=== PATIENT | female | born 2000 | race Hispanic/Latino ===

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

== ENCOUNTER 2018-07-31 00:46 | Emergency (ER) | payer SELFPAY ==
[2018-07-31 00:46] VITALS: BMI 44.9
[2018-07-31 00:53] VITALS: TEMP 98.1
--- NOTE | 2018-07-31 01:37 | C.PDOC ---
History Of Present Illness 18 year old female presents to the ER with a complaint of nasal congestion, cough, chills, and subjective fever since yesterday. Patient states she was at work today feeling malaise and lightheaded, reports she had Hx of syncope and seizure in the past with at least two episodes in the past but not on any seizure medications. Denies syncope, LOC, seizure, or actively witnessed seizure. On arrival to ER patient is feeling better with fresh air. Time Seen by Provider: 07/31/18 01:02 Chief Complaint (Nursing): Flu-like Symptoms History Per: Patient History/Exam Limitations: no limitations Onset/Duration Of Symptoms: Days (Yesterday) Current Symptoms Are (Timing): Still Present Sick Contacts (Context): None Associated Symptoms: Fever (Subjective), Chills, Cough, Nasal Congestion, Other (Malaise, Lightheadedness) Recent travel outside of the [place]: No Past Medical History Reviewed: Historical Data, Nursing Documentation, Vital Signs Vital Signs: Last Vital Signs Temp 98.1 F 07/31/18 00:51 Pulse 83 07/31/18 00:51 Resp 14 07/31/18 00:51 BP 130/76 07/31/18 00:51 Pulse Ox 98 07/31/18 00:51 - Medical History PMH: Asthma, Bronchitis, Seizures (January 2016 secondary to dehydration) Surgical History: Appendectomy (@ 3 years old) Family History: States: Unknown Family Hx - Social History Hx Alcohol Use: No Hx Substance Use: No - Immunization History Hx Tetanus Toxoid Vaccination: Yes Hx Influenza Vaccination: No Hx Pneumococcal Vaccination: No Review Of Systems Constitutional: Positive for: Fever (Subjective), Chills, Malaise ENT: Positive for: Nose Congestion Cardiovascular: Positive for: Light Headedness Respiratory: Positive for: Cough Neurological: Negative for: Seizures, Other (LOC, Syncope) Physical Exam - Physical Exam Appears: Non-toxic Skin: Normal Color, Warm, Dry Head: Atraumatic, Normacephalic, No Tenderness (Parasinus) Eye(s): bilateral: Normal Inspection Ear(s): Bilateral: Normal Nose: Discharge (Thick) Oral Mucosa: Moist Throat: Normal, No Erythema, No Exudate Neck: Normal, Supple Chest: Symmetrical, No Tenderness Cardiovascular: Rhythm Regular Respiratory: Normal Breath Sounds, No Rales, No Rhonchi, No Wheezing Neurological/Psych: Oriented x3, Normal Speech ED Course And Treatment O2 Sat by Pulse Oximetry: 98 (Room air) Pulse Ox Interpretation: Normal Progress Note: Patient appears well, conversing at bedside with sibling, vitals are stable, symptoms most likely viral, UCG ordered and found negative. Patient advised fluids, supportive treatment, and follow up with PMD or return if symptoms worsen. Disposition Counseled Patient/Family Regarding: Diagnosis, Need For Followup, Rx Given - Disposition Disposition: HOME/ ROUTINE Disposition Time: :34 Condition: STABLE Additional Instructions: Increase PO fluds Bed rest Take decongestants as directed Keep yourself well hydrated Return to ER if sx worsen Prescriptions: Brompheniramine/Pseudoephed/Dm [Bromfed Dm Cough Syrup] 5 ml PO QID #100 ml Cetirizine HCl [Zyrtec] 10 mg PO DAILY #14 capsule Instructions: Viral Upper Respiratory Infection, Adult (DC) Forms: [email or web address] (Honduran), Work Excuse - Clinical Impression Clinical Impression: Upper respiratory infection, Viral illness - PA / SERVICE COORDINATOR / Resident Statement MD/DO has reviewed & agrees with the documentation as recorded. - Scribe Statement The provider has reviewed the documentation as recorded by the Scribe Edy Skelton All medical record entries made by the Scribe were at my direction and personally dictated by me. I have reviewed the chart and agree that the record accurately reflects my personal performance of the history, physical exam, medical decision making, and the department course for this patient. I have also personally directed, reviewed, and agree with the discharge instructions and disposition.
[2018-07-31 01:51] VITALS: BP 127/72; PULSE 79; RESP 18
[2018-07-31 02:16] VITALS: O2SAT 98
== END 2018-07-31 01:51 | disposition home or self-care (01) ==
LOC: C.ER 00:46
DX: J06.9 Acute upper respiratory infection, unspecified (principal); B34.9 Viral infection, unspecified